=== PATIENT | male | born 1970 | race American Indian/Alaskan Native ===

== ENCOUNTER 2017-07-31 12:59 | Emergency (ER) | payer MEDICAID ==
[2017-07-31 13:08] VITALS: BP 157/85
--- NOTE | 2017-07-31 13:54 | EDM.PDOC ---
ED HPI GENERAL MEDICAL PROBLEM - General Chief Complaint: Neuro Symptoms/Deficits Stated Complaint: BY AMBULANCE Time Seen by Provider: 07/31/17 13:35 Source of Information: Reports: Patient History Limitations: Reports: No Limitations - History of Present Illness INITIAL COMMENTS - FREE TEXT/NARRATIVE: This 46 yo male patient was brought to the ED by [facility] due to a possible seizure. The patient reports he has not slept in the past 2 nights. The patient reports he drank at least 5 redbulls and multiple cups of coffee today to stay awake. The patient reports he was at the bank filling out a deposit slip when he remembers shaking. The patient reports the next thing he remembers was waking up in the back of the ambulance. The patient also reports that he has been smoking. The patient denies any drug or alcohol use. Onset: Today, Sudden Duration: Constant Location: Reports: Generalized Quality: Reports: Other Severity: Severe Improves with: Reports: None Worsens with: Reports: None Associated Symptoms: Reports: No Other Symptoms - Related Data Allergies Allergy/AdvReac Type Severity Reaction Status Date / Time No Known Allergies Allergy Verified 07/31/17 13:04 Home Meds: Home Meds Insulin Aspart [NovoLOG] 1 unit SUBCUT TID 11/11/14 [History] Insulin Glarg,Human.Rec.Analog [Lantus Solostar] 0 units SUBCUT DAILY 11/11/14 [ History] Simvastatin [Simvastatin] 40 mg PO BEDTIME 11/11/14 [History] Lisinopril 40 mg PO DAILY 10/21/15 [History] Past Medical History Cardiovascular History: Reports: High Cholesterol, Hypertension Respiratory History: Reports: COPD Musculoskeletal History: Reports: Back Pain, Chronic, Fracture, Osteoarthritis Neurological History: Reports: Neuropathy, Diabetic Psychiatric History: Reports: Addiction Endocrine/Metabolic History: Reports: Diabetes, Type II, IDDM, Obesity/BMI 30+ - Past Surgical History HEENT Surgical History: Reports: Tonsillectomy Neurological Surgical History: Reports: Spinal Fusion - History Comment History Comment: Noncompliance with medication, insulin, diabetic monitoring/ self care, and diet. Social & Family History - Family History Family Medical History: Noncontributory Cardiac: Reports: CAD, High Cholesterol, Hypertension Respiratory: Reports: COPD GI: Reports: Cholelithiasis Endocrine/Metabolic: Reports: Diabetes, type II, Obesity/MBI 30+ - Tobacco Use Smoking Status *Q: Current Every Day Smoker Years of Tobacco use: 35 Packs/Tins Daily: 1 Used Tobacco, but Quit: No Second Hand Smoke Exposure: Yes - Caffeine Use Caffeine Use: Reports: Energy Drinks, Soda - Alcohol Use Days Per Week of Alcohol Use: 0 - Recreational Drug Use Recreational Drug Use: No - Living Situation & Occupation Living situation: Reports: Occupation: Unemployed ED ROS GENERAL - Review of Systems Review Of Systems: ROS reveals no pertinent complaints other than HPI. ED EXAM, GENERAL - Physical Exam Exam: See Below Exam Limited By: No Limitations General Appearance: Alert, WD/WN, Moderate Distress Eye Exam: Bilateral Eye: EOMI, Normal Inspection, PERRL Ears: Normal External Exam, Normal Canal, Hearing Grossly Normal, Normal TMs Nose: Normal Inspection, Normal Mucosa, No Blood Throat/Mouth: Normal Inspection, Normal Lips, Normal Teeth, Normal Gums, Normal Oropharynx, Normal Voice, No Airway Compromise Head: Atraumatic, Normocephalic Neck: Normal Inspection, Supple, Non-Tender, Full Range of Motion Respiratory/Chest: No Respiratory Distress, Lungs Clear, Normal Breath Sounds, No Accessory Muscle Use, Chest Non-Tender Cardiovascular: Normal Peripheral Pulses, Regular Rate, Rhythm, No Edema, No Gallop, No JVD, No Murmur, No Rub GI/Abdominal: Normal Bowel Sounds, Soft, Non-Tender, No Organomegaly, No Distention, No Abnormal Bruit, No Mass (Male) Exam: Deferred Rectal (Males) Exam: Deferred Back Exam: Normal Inspection, Full Range of Motion, NT Extremities: Normal Inspection, Normal Range of Motion, Non-Tender, Normal Capillary Refill, No Pedal Edema Neurological: Alert, Oriented, CN II-XII Intact, Normal Cognition, Normal Gait, Normal Reflexes, No Motor/Sensory Deficits Psychiatric: Normal Affect, Normal Mood Skin Exam: Warm, Dry, Intact, Normal Color, No Rash Lymphatic: No Adenopathy Course - Vital Signs Last Recorded V/S: Last Vital Signs Temp 36.4 C 07/31/17 13:05 Pulse 115 H 07/31/17 13:05 Resp 18 07/31/17 13:05 BP 157/85 H 07/31/17 13:05 Pulse Ox 99 07/31/17 13:05 - Orders/Labs/Meds Orders: Active Orders 24 hr Category Date Time Status EKG Documentation Completion [RC] URGENT Care 07/31/17 13:12 Active Chest 1V Frontal [CR] Urgent Exams 07/31/17 13:12 Taken Head wo Cont [CT] Urgent Exams 07/31/17 13:12 Taken Labs: Laboratory Tests 07/31/17 07/31/17 07/31/17 Range/Units 13:31 13:31 13:40 WBC (5.0-10.0) 10^3/uL RBC (4.6-6.2) 10^6/uL Hgb (14.0-18.0) g/dL Hct (40.0-54.0) % MCV (80-100) fL MCH (27.0-34.0) pg MCHC (33.0-35.0) g/dL Plt Count (150-450) 10^3/uL Neut % (Auto) (42.2-75.2) % Lymph % (Auto) (20.5-50.1) % [place] % (Auto) (2-8) % Eos % (Auto) (1.0-3.0) % Baso % (Auto) (0.0-1.0) % Sodium (135-145) mmol/L Potassium (3.6-5.0) mmol/L Chloride (101-111) mmol/L Carbon Dioxide (21.0-31.0) mmol/L Anion Gap BUN (7-18) mg/dL Creatinine (0.6-1.3) mg/dL Est Cr Clr Drug Dosing mL/min Estimated GFR (MDRD) BUN/Creatinine Ratio Glucose (74-105) mg/dL Calcium (8.4-10.2) mg/dl Magnesium 1.7 L (1.8-2.5) mg/dL Total Bilirubin (0.2-1.0) mg/dL AST (10-42) IU/L ALT (10-60) IU/L Alkaline Phosphatase (42-121) IU/L Troponin I (0.00-0.02) ng/ml Total Protein (6.7-8.2) g/dl Albumin (3.2-5.5) g/dl Globulin Albumin/Globulin Ratio Urine Color Yellow (YELLOW) Urine Appearance Clear (CLEAR) Urine pH 7.0 (5.0-9.0) Ur Specific [place] 1.015 (1.005-1.030) Urine Protein 100 H (NEGATIVE) Urine Glucose (UA) 100 H (NEGATIVE) Urine Ketones Negative (NEGATIVE) Urine Occult Blood Trace-intact H (NEGATIVE) Urine Nitrite Negative (NEGATIVE) Urine Bilirubin Negative (NEGATIVE) Urine Urobilinogen 0.2 (0.2-1.0) mg/dL Ur Leukocyte Esterase Negative (NEGATIVE) Urine RBC 0-5 /HPF Urine WBC Not seen (0-5/HPF) /HPF Ur Epithelial Cells Few /HPF Urine Bacteria Not seen (0-FEW/HPF) /HPF Urine Other Salicylates < 4 Urine Opiates Screen Positive H (NEGATIVE) Ur Oxycodone Screen Negative (NEGATIVE) Urine Methadone Screen Negative (NEGATIVE) Acetaminophen < 10 Ur Barbiturates Screen Negative (NEGATIVE) U Tricyclic Antidepress Negative (NEGATIVE) Ur Phencyclidine Scrn Negative (NEGATIVE) Ur Amphetamine Screen Negative (NEGATIVE) U Methamphetamines Scrn Negative (NEGATIVE) Urine MDMA Screen Negative (NEGATIVE) U Benzodiazepines Scrn Negative (NEGATIVE) Urine Cocaine Screen Negative (NEGATIVE) U Marijuana (THC) Screen Positive H (NEGATIVE) Ethyl Alcohol < 5 mg/dL 07/31/17 07/31/17 Range/Units 13:40 13:40 WBC 8.7 (5.0-10.0) 10^3/uL RBC 4.65 (4.6-6.2) 10^6/uL Hgb 13.8 L D (14.0-18.0) g/dL Hct 40.6 (40.0-54.0) % MCV 87.3 (80-100) fL MCH 29.7 (27.0-34.0) pg MCHC 34.0 (33.0-35.0) g/dL Plt Count 161 D (150-450) 10^3/uL Neut % (Auto) 67.0 (42.2-75.2) % Lymph % (Auto) 24.6 (20.5-50.1) % [place] % (Auto) 6.2 (2-8) % Eos % (Auto) 1.7 (1.0-3.0) % Baso % (Auto) 0.5 (0.0-1.0) % Sodium 137 (135-145) mmol/L Potassium 3.8 (3.6-5.0) mmol/L Chloride 104 (101-111) mmol/L Carbon Dioxide 22.0 (21.0-31.0) mmol/L Anion Gap 14.8 BUN 6 L (7-18) mg/dL Creatinine 0.8 (0.6-1.3) mg/dL Est Cr Clr Drug Dosing 125.50 mL/min Estimated GFR (MDRD) > 60 BUN/Creatinine Ratio 7.50 Glucose 245 H (74-105) mg/dL Calcium 8.9 (8.4-10.2) mg/dl Magnesium (1.8-2.5) mg/dL Total Bilirubin 0.5 (0.2-1.0) mg/dL AST 23 (10-42) IU/L ALT 30 (10-60) IU/L Alkaline Phosphatase 62 (42-121) IU/L Troponin I < 0.02 (0.00-0.02) ng/ml Total Protein 7.0 (6.7-8.2) g/dl Albumin 3.8 (3.2-5.5) g/dl Globulin 3.2 Albumin/Globulin Ratio 1.19 Urine Color (YELLOW) Urine Appearance (CLEAR) Urine pH (5.0-9.0) Ur Specific [place] (1.005-1.030) Urine Protein (NEGATIVE) Urine Glucose (UA) (NEGATIVE) Urine Ketones (NEGATIVE) Urine Occult Blood (NEGATIVE) Urine Nitrite (NEGATIVE) Urine Bilirubin (NEGATIVE) Urine Urobilinogen (0.2-1.0) mg/dL Ur Leukocyte Esterase (NEGATIVE) Urine RBC /HPF Urine WBC (0-5/HPF) /HPF Ur Epithelial Cells /HPF Urine Bacteria (0-FEW/HPF) /HPF Urine Other Salicylates Urine Opiates Screen (NEGATIVE) Ur Oxycodone Screen (NEGATIVE) Urine Methadone Screen (NEGATIVE) Acetaminophen Ur Barbiturates Screen (NEGATIVE) U Tricyclic Antidepress (NEGATIVE) Ur Phencyclidine Scrn (NEGATIVE) Ur Amphetamine Screen (NEGATIVE) U Methamphetamines Scrn (NEGATIVE) Urine MDMA Screen (NEGATIVE) U Benzodiazepines Scrn (NEGATIVE) Urine Cocaine Screen (NEGATIVE) U Marijuana (THC) Screen (NEGATIVE) Ethyl Alcohol mg/dL Departure - Departure Time of Disposition: 14:28 Disposition: Against Medical Advice 07 Condition: Undetermined Clinical Impression: Use of energy drinks, Caffeine abuse - Discharge Information Forms: ED Department Discharge Care Plan Goals: The patient was advised of the EKG and lab results while in the ED. While waiting for the CT results, the patient left against medical advice. - My Orders Last 24 Hours: My Active Orders 07/31/17 13:12 EKG Documentation Completion [RC] URGENT Chest 1V Frontal [CR] Urgent Head wo Cont [CT] Urgent - Assessment/Plan Last 24 Hours: My Active Orders 07/31/17 13:12 EKG Documentation Completion [RC] URGENT Chest 1V Frontal [CR] Urgent Head wo Cont [CT] Urgent
[2017-07-31 14:08] LABS: CHLORIDE,CL 104 mmol/L (101-111); SODIUM,NA 137 mmol/L (135-145)
[2017-07-31 14:10] LABS: ACETAMINOPHEN < 10
--- NOTE | 2017-08-06 15:03 | EKG ---
07/31/2017 - PAGE, REX AVERY - FINDINGS: This 12-lead EKG shows sinus tachycardia with a ventricular rate of 109. Normal axis and intervals. No acute ST-segment or T-wave changes. [facility] /[id number]
== END 2017-07-31 14:27 | disposition left against medical advice (07) ==
LOC: DL.ED 12:59
DX: F15.10 Other stimulant abuse, uncomplicated (principal); F17.210 Nicotine dependence, cigarettes, uncomplicated; I10 Essential (primary) hypertension; E11.40 Type 2 diabetes mellitus with diabetic neuropathy, unspecified; J44.9 Chronic obstructive pulmonary disease, unspecified; E78.00 Pure hypercholesterolemia, unspecified; Z79.4 Long term (current) use of insulin; Z79.899 Other long term (current) drug therapy
CPT/HCPCS: 36415; 70450; 71010; 80053; 80305; 81001; 83735; 84484; 85025; 93005; 99285; G0480

== ENCOUNTER 2017-08-16 01:39 | Emergency (ER) | payer MEDICAID ==
[2017-08-16] MEDS ORDERED: Insulin Regular, Human 100 Units/ML 3 ML Vial SUBCUT ONE ×2 (02:15→02:18)
[2017-08-16 02:28] LABS: CHLORIDE,CL 96 mmol/L (101-111); SODIUM,NA 133 mmol/L (135-145)
[2017-08-16 02:54] LABS: BASE EXCESS ARTERIAL -1 mmol/L ((-2)-(+3)); BICARBONATE,ARTERIAL 23.2 mmol/L (22-26); O2 DELIVERY DEVICE ROOM AIR; O2 SATURATION ARTERIAL 91 % (95-100); PCO2 ARTERIAL 41 mmHg (35-45); PO2 ARTERIAL 64 mmHg (70-100)
[2017-08-16] MEDS ORDERED: LORazepam 2 MG/ML Syringe ONE ×2 (03:03→03:19)
[2017-08-16] MEDS ORDERED: Phenytoin 1,000 MG in Sodium Chloride 0.9% 100 ML IV ONE (03:25)
--- NOTE | 2017-08-16 03:31 | EDM.PDOC ---
ED HPI GENERAL MEDICAL PROBLEM - General Chief Complaint: Cardiovascular Problem Stated Complaint: IN BY AMBULANCE Time Seen by Provider: 08/16/17 01:45 Source of Information: Reports: Patient History Limitations: Reports: No Limitations - History of Present Illness INITIAL COMMENTS - FREE TEXT/NARRATIVE: ED via [facility], reported to have bee "shaking at work" then seemed confused and couldnt ercall things, Patient is diabetic and admits not taking medication for at least one month. Onset: Today - Related Data Allergies Allergy/AdvReac Type Severity Reaction Status Date / Time No Known Allergies Allergy Verified 08/16/17 02:08 Home Meds: Home Meds Insulin Aspart [NovoLOG] 1 unit SUBCUT TID 11/11/14 [History] Insulin Glarg,Human.Rec.Analog [Lantus Solostar] 0 units SUBCUT DAILY 11/11/14 [ History] Simvastatin [Simvastatin] 40 mg PO BEDTIME 11/11/14 [History] Lisinopril 40 mg PO DAILY 10/21/15 [History] Past Medical History Cardiovascular History: Reports: High Cholesterol, Hypertension Respiratory History: Reports: COPD Musculoskeletal History: Reports: Back Pain, Chronic, Fracture, Osteoarthritis Neurological History: Reports: Neuropathy, Diabetic Psychiatric History: Reports: Addiction Endocrine/Metabolic History: Reports: Diabetes, Type II, IDDM, Obesity/BMI 30+ - Past Surgical History HEENT Surgical History: Reports: Tonsillectomy Neurological Surgical History: Reports: Spinal Fusion - History Comment History Comment: Noncompliance with medication, insulin, diabetic monitoring/ self care, and diet. Social & Family History - Family History Family Medical History: Noncontributory Cardiac: Reports: CAD, High Cholesterol, Hypertension Respiratory: Reports: COPD GI: Reports: Cholelithiasis Endocrine/Metabolic: Reports: Diabetes, type II, Obesity/MBI 30+ - Tobacco Use Smoking Status *Q: Current Every Day Smoker Years of Tobacco use: 30 Packs/Tins Daily: 20 Used Tobacco, but Quit: No Second Hand Smoke Exposure: Yes - Caffeine Use Caffeine Use: Reports: Coffee, Soda, Tea - Alcohol Use Days Per Week of Alcohol Use: 0 - Recreational Drug Use Recreational Drug Use: No - Living Situation & Occupation Living situation: Reports: Occupation: Unemployed ED ROS GENERAL - Review of Systems Review Of Systems: See Below Constitutional: Denies: Fever, Chills HEENT: Reports: No Symptoms Respiratory: Reports: No Symptoms Cardiovascular: Reports: No Symptoms Endocrine: Reports: Other (Diabetic admits not checking sugar or taking insulin for at least a month) : Reports: No Symptoms Musculoskeletal: Reports: No Symptoms Skin: Reports: No Symptoms Neurological: Reports: Confusion ED EXAM, GENERAL - Physical Exam Exam: See Below Exam Limited By: No Limitations General Appearance: Alert, No Apparent Distress Eye Exam: Bilateral Eye: EOMI, PERRL (5 sluggish reaction) Ears: Normal External Exam Nose: Normal Inspection Throat/Mouth: Normal Inspection Head: Atraumatic, Normocephalic Neck: Normal Inspection, Full Range of Motion Respiratory/Chest: No Respiratory Distress, Lungs Clear, Normal Breath Sounds Cardiovascular: Normal Peripheral Pulses, Regular Rate, Rhythm GI/Abdominal: Normal Bowel Sounds, Soft Back Exam: Normal Inspection Extremities: Normal Inspection Neurological: Alert (confused time date recent events), Normal Reflexes, No Motor/Sensory Deficits Psychiatric: Normal Affect, Normal Mood Skin Exam: Warm, Dry, Intact, Normal Color Course - Vital Signs Last Recorded V/S: Last Vital Signs Temp 98.3 F 08/16/17 03:45 Pulse 123 H 08/16/17 03:45 Resp 20 08/16/17 03:45 BP 131/86 08/16/17 03:45 Pulse Ox 98 08/16/17 03:45 - Orders/Labs/Meds Orders: Active Orders 24 hr Category Date Time Status Glucose [Blood Glucose Check, Bedside] [RC] ONETIME Care 08/16/17 04:09 Active Labs: Laboratory Tests 08/16/17 08/16/17 08/16/17 Range/Units 02:00 02:00 02:00 WBC 12.5 H (5.0-10.0) 10^3/uL RBC 5.15 (4.6-6.2) 10^6/uL Hgb 15.2 (14.0-18.0) g/dL Hct 44.0 (40.0-54.0) % MCV 85.4 (80-100) fL MCH 29.5 (27.0-34.0) pg MCHC 34.5 (33.0-35.0) g/dL Plt Count 229 (150-450) 10^3/uL Neut % (Auto) 87.3 H (42.2-75.2) % Lymph % (Auto) 8.6 L (20.5-50.1) % [place] % (Auto) 3.5 (2-8) % Eos % (Auto) 0.2 L (1.0-3.0) % Baso % (Auto) 0.4 (0.0-1.0) % ABG pH (7.35-7.45) ABG pCO2 (35-45) mmHg ABG pO2 (70-100) mmHg ABG HCO3 (22-26) mmol/L ABG O2 Saturation (95-100) % ABG Base Excess ((-2)-(+3)) mmol/L O2 Delivery Device Sodium 133 L (135-145) mmol/L Potassium 3.9 (3.6-5.0) mmol/L Chloride 96 L (101-111) mmol/L Carbon Dioxide 23.0 (21.0-31.0) mmol/L Anion Gap 17.9 BUN 8 (7-18) mg/dL Creatinine 0.9 (0.6-1.3) mg/dL Est Cr Clr Drug Dosing 111.56 mL/min Estimated GFR (MDRD) > 60 BUN/Creatinine Ratio 8.88 Glucose 445 H* (74-105) mg/dL POC Glucose (70-105) mg/dl Lactic Acid 4.7 H (0.5-2.2) mmol/L Calcium 9.5 (8.4-10.2) mg/dl Total Bilirubin 0.5 (0.2-1.0) mg/dL AST 26 (10-42) IU/L ALT 26 (10-60) IU/L Alkaline Phosphatase 92 (42-121) IU/L Total Protein 7.8 (6.7-8.2) g/dl Albumin 4.3 (3.2-5.5) g/dl Globulin 3.5 Albumin/Globulin Ratio 1.23 Amylase 67 (28-100) U/L Lipase 25 (22-51) U/L Urine Color (YELLOW) Urine Appearance (CLEAR) Urine pH (5.0-9.0) Ur Specific [place] (1.005-1.030) Urine Protein (NEGATIVE) Urine Glucose (UA) (NEGATIVE) Urine Ketones (NEGATIVE) Urine Occult Blood (NEGATIVE) Urine Nitrite (NEGATIVE) Urine Bilirubin (NEGATIVE) Urine Urobilinogen (0.2-1.0) mg/dL Ur Leukocyte Esterase (NEGATIVE) Urine RBC /HPF Urine WBC (0-5/HPF) /HPF Ur Epithelial Cells /HPF Urine Bacteria (0-FEW/HPF) /HPF Urine Opiates Screen (NEGATIVE) Ur Oxycodone Screen (NEGATIVE) Urine Methadone Screen (NEGATIVE) Ur Barbiturates Screen (NEGATIVE) U Tricyclic Antidepress (NEGATIVE) Ur Phencyclidine Scrn (NEGATIVE) Ur Amphetamine Screen (NEGATIVE) U Methamphetamines Scrn (NEGATIVE) Urine MDMA Screen (NEGATIVE) U Benzodiazepines Scrn (NEGATIVE) Urine Cocaine Screen (NEGATIVE) U Marijuana (THC) Screen (NEGATIVE) Ketones Negative 08/16/17 08/16/17 08/16/17 Range/Units 02:05 02:40 03:10 WBC (5.0-10.0) 10^3/uL RBC (4.6-6.2) 10^6/uL Hgb (14.0-18.0) g/dL Hct (40.0-54.0) % MCV (80-100) fL MCH (27.0-34.0) pg MCHC (33.0-35.0) g/dL Plt Count (150-450) 10^3/uL Neut % (Auto) (42.2-75.2) % Lymph % (Auto) (20.5-50.1) % [place] % (Auto) (2-8) % Eos % (Auto) (1.0-3.0) % Baso % (Auto) (0.0-1.0) % ABG pH 7.37 (7.35-7.45) ABG pCO2 41 (35-45) mmHg ABG pO2 64 L (70-100) mmHg ABG HCO3 23.2 (22-26) mmol/L ABG O2 Saturation 91 L (95-100) % ABG Base Excess -1 ((-2)-(+3)) mmol/L O2 Delivery Device Room air Sodium (135-145) mmol/L Potassium (3.6-5.0) mmol/L Chloride (101-111) mmol/L Carbon Dioxide (21.0-31.0) mmol/L Anion Gap BUN (7-18) mg/dL Creatinine (0.6-1.3) mg/dL Est Cr Clr Drug Dosing mL/min Estimated GFR (MDRD) BUN/Creatinine Ratio Glucose (74-105) mg/dL POC Glucose 364 H 386 H (70-105) mg/dl Lactic Acid (0.5-2.2) mmol/L Calcium (8.4-10.2) mg/dl Total Bilirubin (0.2-1.0) mg/dL AST (10-42) IU/L ALT (10-60) IU/L Alkaline Phosphatase (42-121) IU/L Total Protein (6.7-8.2) g/dl Albumin (3.2-5.5) g/dl Globulin Albumin/Globulin Ratio Amylase (28-100) U/L Lipase (22-51) U/L Urine Color (YELLOW) Urine Appearance (CLEAR) Urine pH (5.0-9.0) Ur Specific [place] (1.005-1.030) Urine Protein (NEGATIVE) Urine Glucose (UA) (NEGATIVE) Urine Ketones (NEGATIVE) Urine Occult Blood (NEGATIVE) Urine Nitrite (NEGATIVE) Urine Bilirubin (NEGATIVE) Urine Urobilinogen (0.2-1.0) mg/dL Ur Leukocyte Esterase (NEGATIVE) Urine RBC /HPF Urine WBC (0-5/HPF) /HPF Ur Epithelial Cells /HPF Urine Bacteria (0-FEW/HPF) /HPF Urine Opiates Screen (NEGATIVE) Ur Oxycodone Screen (NEGATIVE) Urine Methadone Screen (NEGATIVE) Ur Barbiturates Screen (NEGATIVE) U Tricyclic Antidepress (NEGATIVE) Ur Phencyclidine Scrn (NEGATIVE) Ur Amphetamine Screen (NEGATIVE) U Methamphetamines Scrn (NEGATIVE) Urine MDMA Screen (NEGATIVE) U Benzodiazepines Scrn (NEGATIVE) Urine Cocaine Screen (NEGATIVE) U Marijuana (THC) Screen (NEGATIVE) Ketones 08/16/17 08/16/17 08/16/17 Range/Units 03:22 03:22 04:20 WBC (5.0-10.0) 10^3/uL RBC (4.6-6.2) 10^6/uL Hgb (14.0-18.0) g/dL Hct (40.0-54.0) % MCV (80-100) fL MCH (27.0-34.0) pg MCHC (33.0-35.0) g/dL Plt Count (150-450) 10^3/uL Neut % (Auto) (42.2-75.2) % Lymph % (Auto) (20.5-50.1) % [place] % (Auto) (2-8) % Eos % (Auto) (1.0-3.0) % Baso % (Auto) (0.0-1.0) % ABG pH (7.35-7.45) ABG pCO2 (35-45) mmHg ABG pO2 (70-100) mmHg ABG HCO3 (22-26) mmol/L ABG O2 Saturation (95-100) % ABG Base Excess ((-2)-(+3)) mmol/L O2 Delivery Device Sodium (135-145) mmol/L Potassium (3.6-5.0) mmol/L Chloride (101-111) mmol/L Carbon Dioxide (21.0-31.0) mmol/L Anion Gap BUN (7-18) mg/dL Creatinine (0.6-1.3) mg/dL Est Cr Clr Drug Dosing mL/min Estimated GFR (MDRD) BUN/Creatinine Ratio Glucose (74-105) mg/dL POC Glucose 342 H (70-105) mg/dl Lactic Acid (0.5-2.2) mmol/L Calcium (8.4-10.2) mg/dl Total Bilirubin (0.2-1.0) mg/dL AST (10-42) IU/L ALT (10-60) IU/L Alkaline Phosphatase (42-121) IU/L Total Protein (6.7-8.2) g/dl Albumin (3.2-5.5) g/dl Globulin Albumin/Globulin Ratio Amylase (28-100) U/L Lipase (22-51) U/L Urine Color Yellow (YELLOW) Urine Appearance Clear (CLEAR) Urine pH 6.0 (5.0-9.0) Ur Specific [place] 1.010 (1.005-1.030) Urine Protein 30 H (NEGATIVE) Urine Glucose (UA) 500 H (NEGATIVE) Urine Ketones 15 H (NEGATIVE) Urine Occult Blood Trace-intact H (NEGATIVE) Urine Nitrite Negative (NEGATIVE) Urine Bilirubin Negative (NEGATIVE) Urine Urobilinogen 0.2 (0.2-1.0) mg/dL Ur Leukocyte Esterase Negative (NEGATIVE) Urine RBC 0-5 /HPF Urine WBC 0-5 (0-5/HPF) /HPF Ur Epithelial Cells Rare /HPF Urine Bacteria Occasional (0-FEW/HPF) /HPF Urine Opiates Screen Negative (NEGATIVE) Ur Oxycodone Screen Negative (NEGATIVE) Urine Methadone Screen Negative (NEGATIVE) Ur Barbiturates Screen Negative (NEGATIVE) U Tricyclic Antidepress Negative (NEGATIVE) Ur Phencyclidine Scrn Negative (NEGATIVE) Ur Amphetamine Screen Negative (NEGATIVE) U Methamphetamines Scrn Negative (NEGATIVE) Urine MDMA Screen Negative (NEGATIVE) U Benzodiazepines Scrn Negative (NEGATIVE) Urine Cocaine Screen Negative (NEGATIVE) U Marijuana (THC) Screen Positive H (NEGATIVE) Ketones Meds: Medications Discontinued Medications Generic Name Dose Route Start Last Admin Trade Name Freq PRN Reason Stop Dose Admin Phenytoin Sodium 1,000 mg/ 120 mls @ 240 mls/hr 08/16/17 03:25 08/16/17 03:49 Sodium Chloride IV 08/16/17 03:26 240 mls/hr ONETIME ONE Administration Sodium Chloride 1,000 mls @ 500 mls/hr 08/16/17 04:28 08/16/17 04:20 Normal Saline IV 08/16/17 06:27 500 mls/hr .BOLUS ONE Administration Insulin Human Regular 15 unit 08/16/17 02:15 08/16/17 02:49 Humulin R SUBCUT 08/16/17 02:16 Not Given ONETIME ONE Protocol Insulin Human Regular 10 unit 08/16/17 02:18 08/16/17 02:25 Humulin R SUBCUT 08/16/17 02:19 10 units ONETIME ONE Administration Protocol Lorazepam Confirm 08/16/17 03:03 08/16/17 04:15 Ativan Administered 08/16/17 03:04 2 mg Dose Administration 2 mg .ROUTE .STK-MED ONE Lorazepam Confirm 08/16/17 03:19 08/16/17 04:15 Ativan Administered 08/16/17 03:20 2 mg Dose Administration 2 mg .ROUTE .STK-MED ONE Lorazepam 2 mg 08/16/17 03:51 08/16/17 04:16 Ativan IVPUSH 08/16/17 03:52 Not Given ONETIME ONE Lorazepam 1 mg 08/16/17 03:51 08/16/17 04:16 Ativan IVPUSH 08/16/17 03:52 Not Given ONETIME ONE - Radiology Interpretation Free Text/Narrative:: CT head, no acute change - Re-Assessments/Exams Free Text/Narrative Re-Assessment/Exam: awaiting lab results, patient up to void, tonic clonic seizure lasting approximately 90 seconds with postictal state 3mg ativan to cease siezure activity. TC consult Dr. Brandon Longoria, agree to admit for further eval DKA and seizure. Tx via [facility] stable condition, awake talking appropriately upon transfer. Departure - Departure Time of Disposition: 04:35 Disposition: DC/Tfer to Acute Hospital 02 Reason for Transfer *Q: Other Condition: Undetermined Clinical Impression: Seizure Diabetes Qualifiers: Diabetes mellitus type: other specified (including ABHIJIT) Diabetes mellitus complication status: without complication Diabetes mellitus correction insulin use: unspecified correction insulin use status Qualified Code(s): E13.9 - Other specified diabetes mellitus without complications DKA (diabetic ketoacidoses) Qualifiers: Diabetes mellitus type: type 2 Diabetes mellitus complication detail: without coma Qualified Code(s): E11.10 - Type 2 diabetes mellitus with ketoacidosis without coma Forms: ED Department Discharge - My Orders Last 24 Hours: My Active Orders 08/16/17 04:09 Glucose [Blood Glucose Check, Bedside] [] ONETIME - Assessment/Plan Last 24 Hours: My Active Orders 08/16/17 04:09 Glucose [Blood Glucose Check, Bedside] [] ONETIME
[2017-08-16 03:44] VITALS: BP 131/86
[2017-08-16] MEDS ORDERED: LORazepam 2 MG/ML Syringe IVPUSH ONE ×2 (03:51)
[2017-08-16] MEDS ORDERED: Sodium Chloride 0.9% 1,000 ML IV ONE (04:28)
--- NOTE | 2017-08-19 13:34 | EKG ---
08/16/2017 - PAGE, REX AVERY - A 12-lead EKG shows normal sinus rhythm with sinus tachycardia. No significant ST elevation or ST depression noted on this 12-lead EKG. Nonspecific ST-T wave changes noted on lead V2 and lead II. [facility] /[id number]
== END 2017-08-16 04:37 ==
LOC: DL.ED 01:39
DX: G40.409 Other generalized epilepsy and epileptic syndromes, not intractable, without status epilepticus (principal); E11.10 Type 2 diabetes mellitus with ketoacidosis without coma; E11.40 Type 2 diabetes mellitus with diabetic neuropathy, unspecified; I10 Essential (primary) hypertension; E78.00 Pure hypercholesterolemia, unspecified; Z79.4 Long term (current) use of insulin; Z79.899 Other long term (current) drug therapy
CPT/HCPCS: 36415; 36600; 70450; 80053; 80305; 81001; 82009; 82150; 82803; 82962; 83605; 83690; 85025; 93005; 96365; 96372; 96375; 99285; J1165; J1815; J2060; J7030; J7050

== ENCOUNTER 2017-08-30 15:25 | Emergency (ER) | payer MEDICAID ==
[2017-08-30] MEDS ORDERED: Acetaminophen/HYDROcodone 325-10 MG Tab PO ONE (15:26)
[2017-08-30] MEDS ORDERED: Clindamycin HCl 150 MG Cap PO ONE (15:26)
[2017-08-30] MEDS ORDERED: Ciprofloxacin 500 MG Tab PO ONE (15:26)
[2017-08-30 15:41] VITALS: BP 160/95
--- NOTE | 2017-08-30 15:42 | EDM.PDOC ---
ED HPI GENERAL MEDICAL PROBLEM - General Chief Complaint: Lower Extremity Injury/Pain Stated Complaint: ULCER ON FOOT AND DRAINAGE [id number] Time Seen by Provider: 08/30/17 15:42 Source of Information: Reports: Patient, Old Records, RN, RN Notes Reviewed History Limitations: Reports: No Limitations - History of Present Illness INITIAL COMMENTS - FREE TEXT/NARRATIVE: Arrives from home by POV with c/o a draining ulcer at the left heel with a painful red streak going from the ulcer up to the knee. Pt states he first noticed the left heel was red and had a blister about 3 days ago. Pt works and is on his feet for 15 hours every day. Yesterday the area began to drain pus and fluid. Denies fever or chills. Pt states that he is an insulin dependent diabetic and doesn't take very good care of his health. He smokes a pack of cigarettes a day also. Onset: Gradual Duration: Day(s): (3-5), Constant, Getting Worse Location: Reports: Lower Extremity, Left Quality: Reports: Ache Severity: Moderate Improves with: Reports: None Worsens with: Reports: None Associated Symptoms: Reports: No Other Symptoms Left Feet Pain Score (Numeric/FACES): 10 - Related Data Allergies Allergy/AdvReac Type Severity Reaction Status Date / Time codeine Allergy Cannot Verified 08/30/17 15:41 Remember shellfish derived Allergy Cannot Verified 08/30/17 15:41 Remember Home Meds: Home Meds Insulin Aspart [NovoLOG] 40 unit SUBCUT DAILY 11/11/14 [History] Insulin Glarg,Human.Rec.Analog [Lantus Solostar] 0 units SUBCUT DAILY 11/11/14 [ History] Simvastatin [Simvastatin] 40 mg PO BEDTIME 11/11/14 [History] Lisinopril 40 mg PO DAILY 10/21/15 [History] Past Medical History Cardiovascular History: Reports: High Cholesterol, Hypertension Respiratory History: Reports: COPD Musculoskeletal History: Reports: Back Pain, Chronic, Fracture, Osteoarthritis Neurological History: Reports: Neuropathy, Diabetic Psychiatric History: Reports: Addiction Endocrine/Metabolic History: Reports: Diabetes, Type II, IDDM, Obesity/BMI 30+ - Past Surgical History HEENT Surgical History: Reports: Tonsillectomy Neurological Surgical History: Reports: Spinal Fusion - History Comment History Comment: Noncompliance with medication, insulin, diabetic monitoring/ self care, and diet. Social & Family History - Family History Family Medical History: Noncontributory Cardiac: Reports: CAD, High Cholesterol, Hypertension Respiratory: Reports: COPD GI: Reports: Cholelithiasis Endocrine/Metabolic: Reports: Diabetes, type II, Obesity/MBI 30+ - Tobacco Use Smoking Status *Q: Current Every Day Smoker Tobacco Use Within Last Twelve Months: Cigarettes Years of Tobacco use: 30 Packs/Tins Daily: 20 Used Tobacco, but Quit: No Second Hand Smoke Exposure: Yes - Caffeine Use Caffeine Use: Reports: Coffee, Soda, Tea - Alcohol Use Days Per Week of Alcohol Use: 0 - Recreational Drug Use Recreational Drug Use: No - Living Situation & Occupation Living situation: Reports: , with Family Occupation: Employed Review of Systems - Review of Systems Review Of Systems: ROS reveals no pertinent complaints other than HPI. ED EXAM, GENERAL - Physical Exam Exam: See Below Exam Limited By: No Limitations General Appearance: Alert, WD/WN, No Apparent Distress Head: Atraumatic, Normocephalic Respiratory/Chest: No Respiratory Distress, Lungs Clear Cardiovascular: Regular Rate, Rhythm Extremities: Normal Range of Motion, No Pedal Edema Neurological: Alert, Oriented, Normal Cognition, No Motor/Sensory Deficits Psychiatric: Normal Affect, Normal Mood Skin Exam: Decubitus (left lateral heel 3.5cm diameter, unstagable, small amt. of purulent drainage, peripheral erythema w/streaks of erythema running up the ant/lat. lower leg to the knee) Course - Vital Signs Last Recorded V/S: Last Vital Signs Temp 36.6 C 08/30/17 15:36 Pulse 100 08/30/17 15:36 Resp 20 08/30/17 15:36 BP 160/95 H 08/30/17 15:36 Pulse Ox 100 08/30/17 15:36 - Orders/Labs/Meds Orders: Active Orders 24 hr Category Date Time Status Blood Glucose Check, Bedside [RC] ONETIME Care 08/30/17 15:47 Active Peripheral IV Care [RC] . DIRECTED Care 08/30/17 15:59 Active CULTURE BLOOD [BC] Stat Lab 08/30/17 16:09 Received CULTURE BLOOD [BC] Stat Lab 08/30/17 16:50 Received CULTURE WOUND [RM] Stat Lab 08/30/17 16:04 Received Sodium Chloride 0.9% [Saline Flush] Med 08/30/17 15:59 Active 10 ml FLUSH ASDIRECTED PRN Blood Culture x2 Reflex Set [OM.PC] Stat Oth 08/30/17 15:59 Ordered Peripheral IV Insertion Adult [OM.PC] Stat Oth 08/30/17 15:59 Ordered Medication Orders Sodium Chloride (Saline Flush) 10 ml FLUSH ASDIRECTED PRN PRN Reason: Keep Vein Open Labs: Laboratory Tests 08/30/17 08/30/17 08/30/17 Range/Units 15:49 16:09 16:09 WBC 13.2 H (5.0-10.0) 10^3/uL RBC 5.19 (4.6-6.2) 10^6/uL Hgb 15.2 (14.0-18.0) g/dL Hct 45.3 (40.0-54.0) % MCV 87.3 (80-100) fL MCH 29.3 (27.0-34.0) pg MCHC 33.6 (33.0-35.0) g/dL Plt Count 218 (150-450) 10^3/uL Neut % (Auto) 71.2 (42.2-75.2) % Lymph % (Auto) 20.0 L (20.5-50.1) % Duchesne % (Auto) 6.4 (2-8) % Eos % (Auto) 2.0 (1.0-3.0) % Baso % (Auto) 0.4 (0.0-1.0) % Sodium 134 L (135-145) mmol/L Potassium 4.0 (3.6-5.0) mmol/L Chloride 100 L (101-111) mmol/L Carbon Dioxide 29.0 (21.0-31.0) mmol/L Anion Gap 9.0 BUN 9 (7-18) mg/dL Creatinine 0.7 (0.6-1.3) mg/dL Est Cr Clr Drug Dosing 139.05 mL/min Estimated GFR (MDRD) > 60 BUN/Creatinine Ratio 12.85 Glucose 281 H (74-105) mg/dL POC Glucose 251 H (70-105) mg/dl Lactic Acid (0.5-2.2) mmol/L Calcium 9.2 (8.4-10.2) mg/dl Total Bilirubin 0.4 (0.2-1.0) mg/dL AST 16 (10-42) IU/L ALT 24 (10-60) IU/L Alkaline Phosphatase 78 (42-121) IU/L C-Reactive Protein (0.0-1.3) mg/dL Total Protein 7.3 (6.7-8.2) g/dl Albumin 3.9 (3.2-5.5) g/dl Globulin 3.4 Albumin/Globulin Ratio 1.15 08/30/17 08/30/17 Range/Units 16:09 16:09 WBC (5.0-10.0) 10^3/uL RBC (4.6-6.2) 10^6/uL Hgb (14.0-18.0) g/dL Hct (40.0-54.0) % MCV (80-100) fL MCH (27.0-34.0) pg MCHC (33.0-35.0) g/dL Plt Count (150-450) 10^3/uL Neut % (Auto) (42.2-75.2) % Lymph % (Auto) (20.5-50.1) % Duchesne % (Auto) (2-8) % Eos % (Auto) (1.0-3.0) % Baso % (Auto) (0.0-1.0) % Sodium (135-145) mmol/L Potassium (3.6-5.0) mmol/L Chloride (101-111) mmol/L Carbon Dioxide (21.0-31.0) mmol/L Anion Gap BUN (7-18) mg/dL Creatinine (0.6-1.3) mg/dL Est Cr Clr Drug Dosing mL/min Estimated GFR (MDRD) BUN/Creatinine Ratio Glucose (74-105) mg/dL POC Glucose (70-105) mg/dl Lactic Acid 1.4 (0.5-2.2) mmol/L Calcium (8.4-10.2) mg/dl Total Bilirubin (0.2-1.0) mg/dL AST (10-42) IU/L ALT (10-60) IU/L Alkaline Phosphatase (42-121) IU/L C-Reactive Protein 1.1 (0.0-1.3) mg/dL Total Protein (6.7-8.2) g/dl Albumin (3.2-5.5) g/dl Globulin Albumin/Globulin Ratio Meds: Medications Generic Name Dose Route Start Last Admin Trade Name Alex PRN Reason Stop Dose Admin Sodium Chloride 10 ml 08/30/17 15:59 Saline Flush FLUSH ASDIRECTED PRN Keep Vein Open Discontinued Medications Generic Name Dose Route Start Last Admin Trade Name Alex PRN Reason Stop Dose Admin Diphenhydramine HCl 25 mg 08/30/17 16:02 08/30/17 17:00 Benadryl IVPUSH 08/30/17 16:03 25 mg ONETIME ONE Administration Hydromorphone HCl 1 mg 08/30/17 16:02 08/30/17 16:17 Dilaudid IVPUSH 08/30/17 16:03 1 mg ONETIME ONE Administration Piperacillin Sod/Tazobactam 100 mls @ 200 mls/hr 08/30/17 16:03 08/30/17 16: 17 Sod 3.375 gm/ Sodium Chloride IV 08/30/17 16:32 200 mls/hr ONETIME ONE Administration Vancomycin HCl 1 gm/ Sodium 250 mls @ 167 mls/hr 08/30/17 16:02 08/30/17 17: 01 Chloride IV 08/30/17 17:31 167 mls/hr ONETIME ONE Administration Departure - Departure Time of Disposition: 17:57 Disposition: Home, Self-Care 01 Condition: Fair Clinical Impression: Type 2 diabetes mellitus with pressure ulcer of heel Infected pressure ulcer Qualifiers: Pressure ulcer stage: unstageable Qualified Code(s): L89.95 - Pressure ulcer of unspecified site, unstageable; L08.9 - Local infection of the skin and subcutaneous tissue, unspecified; L08.9 - Local infection of the skin and subcutaneous tissue, unspecified - Discharge Information Instructions: Diabetes and Foot Care, Cellulitis, Adult, [id number] Forms: ED Department Discharge Additional Instructions: Rx: Clindamycin 300mg Rx: Cipro 500mg Rx: Hydrocodone APAP 10mg/325mg *Do not drive while under the influence of this medication. No weight bearing on left heel, use crutches. Follow up in clinic in 2 to 3 days for recheck and referral to podiatry. Quit smoking. Monitor and control your diabetes. - My Orders Last 24 Hours: My Active Orders 08/30/17 15:47 Blood Glucose Check, Bedside [RC] ONETIME 08/30/17 15:59 Peripheral IV Care [RC] . DIRECTED Sodium Chloride 0.9% [Saline Flush] 10 ml FLUSH ASDIRECTED PRN Blood Culture x2 Reflex Set [OM.PC] Stat Peripheral IV Insertion Adult [OM.PC] Stat 08/30/17 16:04 CULTURE WOUND [RM] Stat 08/30/17 16:09 CULTURE BLOOD [BC] Stat 08/30/17 16:50 CULTURE BLOOD [BC] Stat - Assessment/Plan Last 24 Hours: My Active Orders 08/30/17 15:47 Blood Glucose Check, Bedside [RC] ONETIME 08/30/17 15:59 Peripheral IV Care [RC] . DIRECTED Sodium Chloride 0.9% [Saline Flush] 10 ml FLUSH ASDIRECTED PRN Blood Culture x2 Reflex Set [OM.PC] Stat Peripheral IV Insertion Adult [OM.PC] Stat 08/30/17 16:04 CULTURE WOUND [RM] Stat 08/30/17 16:09 CULTURE BLOOD [BC] Stat 08/30/17 16:50 CULTURE BLOOD [BC] Stat
[2017-08-30] MEDS ORDERED: Sodium Chloride 0.9% 10 ML Syringe FLUSH PRN (15:59)
[2017-08-30] MEDS ORDERED: HYDROmorphone 1 MG/ML Syringe IVPUSH ONE (16:02)
[2017-08-30] MEDS ORDERED: diphenhydrAMINE 50 MG/ML SDV IVPUSH ONE (16:02)
[2017-08-30] MEDS ORDERED: Piperacillin/Tazobactam 3.375 GM in Sodium Chloride 0.9% 100 ML IV ONE (16:03)
[2017-08-30 16:36] LABS: CHLORIDE,CL 100 mmol/L (101-111); SODIUM,NA 134 mmol/L (135-145)
[2017-08-30] MEDS ORDERED: Ciprofloxacin 500 MG Tab ONE (18:29)
[2017-08-30] MEDS ORDERED: Clindamycin HCl 150 MG Cap ONE (18:31)
[2017-08-30] MEDS ORDERED: Acetaminophen/HYDROcodone 325-10 MG Tab ONE (18:33)
== END 2017-08-30 18:40 | disposition home or self-care (01) ==
LOC: DL.ED 15:25
DX: L89.620 Pressure ulcer of left heel, unstageable (principal); E11.621 Type 2 diabetes mellitus with foot ulcer; E78.00 Pure hypercholesterolemia, unspecified; I10 Essential (primary) hypertension; F17.210 Nicotine dependence, cigarettes, uncomplicated; Z88.5 Allergy status to narcotic agent; Z91.013 Allergy to seafood; Z79.4 Long term (current) use of insulin; Z79.899 Other long term (current) drug therapy
CPT/HCPCS: 36415; 73610; 80053; 82962; 83605; 85025; 86140; 87040; 87070; 96365; 96366; 96367; 96375; 99284; J1170; J1200; J2543; J3370; J7050; 87077; 87186; A9270-GY

== ENCOUNTER 2017-09-21 15:06 | Emergency (ER) | payer MEDICAID, OTHER ==
[2017-09-21 15:24] VITALS: BP 154/109
[2017-09-21] MEDS ORDERED: Ketorolac 30 MG/ML SDV IVPUSH ONE (16:05)
--- NOTE | 2017-09-21 16:11 | EDM.PDOC ---
ED HPI GENERAL MEDICAL PROBLEM - General Chief Complaint: Neck Problem Stated Complaint: NECK/LEFT SHOULDER Time Seen by Provider: 09/21/17 15:58 Source of Information: Reports: Patient History Limitations: Reports: No Limitations - History of Present Illness INITIAL COMMENTS - FREE TEXT/NARRATIVE: This 46 yo male patient reports to the ED with a lengthy history of neck pain with neuropathy to his upper extremities. The patient has been seen by Pedro Sarmiento for these symptoms and is scheduled to have an MRI by the end of the week. The patient reports he took ibuprofen this morning with no relief. The patient is also on Gabapentin for neuropathy. Onset: Gradual Duration: Week(s):, Constant, Getting Worse Location: Reports: Neck, Upper Extremity, Left, Upper Extremity, Right Quality: Reports: Ache, Sharp, Stabbing Severity: Severe Improves with: Reports: None Worsens with: Reports: None Context: Reports: Other Treatments [employer]: Reports: NSAIDS Neck Pain Score (Numeric/FACES): 8 - Related Data Allergies Allergy/AdvReac Type Severity Reaction Status Date / Time codeine Allergy Cannot Verified 09/21/17 15:23 Remember shellfish derived Allergy Cannot Verified 09/21/17 15:23 Remember Home Meds: Home Meds Insulin Aspart [NovoLOG] 40 unit SUBCUT DAILY 11/11/14 [History] Insulin Glarg,Human.Rec.Analog [Lantus Solostar] 0 units SUBCUT DAILY 11/11/14 [ History] Simvastatin [Simvastatin] 40 mg PO BEDTIME 11/11/14 [History] Lisinopril 40 mg PO DAILY 10/21/15 [History] Gabapentin [Neurontin] 600 mg PO TID 09/21/17 [History] Pioglitazone [Actos] 30 mg PO DAILY 09/21/17 [History] Pregabalin [Lyrica] 50 mg PO DAILY 09/21/17 [History] metFORMIN [Glucophage] 100 mg PO BID 09/21/17 [History] Past Medical History Cardiovascular History: Reports: High Cholesterol, Hypertension Respiratory History: Reports: COPD Musculoskeletal History: Reports: Back Pain, Chronic, Fracture, Osteoarthritis Neurological History: Reports: Neuropathy, Diabetic Psychiatric History: Reports: Addiction Endocrine/Metabolic History: Reports: Diabetes, Type II, IDDM, Obesity/BMI 30+ - Past Surgical History HEENT Surgical History: Reports: Tonsillectomy Neurological Surgical History: Reports: Spinal Fusion - History Comment History Comment: Noncompliance with medication, insulin, diabetic monitoring/ self care, and diet. Social & Family History - Family History Family Medical History: Noncontributory Cardiac: Reports: CAD, High Cholesterol, Hypertension Respiratory: Reports: COPD GI: Reports: Cholelithiasis Endocrine/Metabolic: Reports: Diabetes, type II, Obesity/MBI 30+ - Tobacco Use Smoking Status *Q: Current Every Day Smoker Years of Tobacco use: 20 Packs/Tins Daily: 1 Used Tobacco, but Quit: No Second Hand Smoke Exposure: Yes - Caffeine Use Caffeine Use: Reports: Coffee, Soda - Alcohol Use Days Per Week of Alcohol Use: 0 - Recreational Drug Use Recreational Drug Use: No Other Recreational Drug Type: pt denies - Living Situation & Occupation Living situation: Reports: , with Family Occupation: Employed ED ROS GENERAL - Review of Systems Review Of Systems: ROS reveals no pertinent complaints other than HPI. ED EXAM, UPPER BACK/NECK PAIN - Physical Exam Exam: See Below Exam Limited By: No Limitations General Appearance: Alert, WD/WN, Severe Distress, Obese Eye Exam: Bilateral Eye: EOMI, Normal Inspection, PERRL Ears Exam: Normal External Exam, Normal Canal, Hearing Grossly Normal, Normal TMs Nose Exam: Normal Inspection, Normal Mucousa, No Blood Throat/Mouth Exam: Normal Inspection, Normal Lips, Normal Teeth, Normal Gums, Normal Oropharynx, Normal Voice, No Airway Compromise Head Exam: Atraumatic, Normocephalic Neck Exam: Limited Range of Motion, Tender Lateral, Tender Midline Cardiovascular/Respiratory: Regular Rate, Rhythm, No M/R/G, Normal Peripheral Pulses, No JVD, Normal Breath Sounds, No Respiratory Distress GI/Abdominal: Normal Bowel Sounds, Soft, Non-Tender, No Organomegaly, No Distention, No Abnormal Bruit, No Mass (Male) Exam: Deferred Rectal (Males) Exam: Deferred Back Exam: Normal Inspection Extremities: Normal Inspection, Normal Range of Motion, Non-Tender, No Pedal Edema, Normal Capillary Refill Neurologic: nurse practitioner home assessments II-XII nml As Tested, No Motor/Sensory Deficits, Alert, Normal Mood/Affect, Oriented x 3 Psychiatric: Anxious, Flat Affect Skin Exam: Normal Color, Warm/Dry Lymphatic: No Adenopathy Course - Vital Signs Last Recorded V/S: Last Vital Signs Temp 36.1 C 09/21/17 15:23 Pulse 118 H 09/21/17 15:23 Resp 20 09/21/17 15:23 BP 154/109 H 09/21/17 15:23 Pulse Ox 100 09/21/17 15:23 - Orders/Labs/Meds Orders: Active Orders 24 hr Category Date Time Status Acetaminophen/HYDROcodone [[place] 325-10 MG] Med 09/21/17 16:30 Once 1 tab PO ONETIME ONE Orphenadrine [Norflex] Med 09/21/17 16:15 Active 60 mg IM Q12H Medication Orders Orphenadrine Citrate (Norflex) 60 mg IM Q12H JAMARCUS Last Admin: 09/21/17 16:19 Dose: 60 mg Meds: Medications Generic Name Dose Route Start Last Admin Trade Name Freq PRN Reason Stop Dose Admin Orphenadrine Citrate 60 mg 09/21/17 16:15 09/21/17 16:19 Norflex IM 60 mg Q12H JAMARCUS Administration Discontinued Medications Generic Name Dose Route Start Last Admin Trade Name Freq PRN Reason Stop Dose Admin Ketorolac Tromethamine 60 mg 09/21/17 16:05 09/21/17 16:19 Toradol IVPUSH 09/21/17 16:06 60 mg ONETIME ONE Administration Departure - Departure Time of Disposition: 16:31 Disposition: Home, Self-Care 01 Condition: Fair Clinical Impression: Cervical radiculopathy - Discharge Information Instructions: Cervical Sprain, [id number] Forms: ED Department Discharge Care Plan Goals: The patient was advised of the examination results during the visit. The patient was given an injection of Toradol, Norflex and an oral dose of [place] while in the ED. The patient was discharged with a script for 1) Toradol (10 mg ) #20 to take 1 by mouth every 6 hours, 2) Flexeril (10 mg) #10 to take 1 by mouth at bedtime as needed and 3) [place] (10/325) #5 to take 1 by mouth every 6 hours as needed. The patient should follow-up with his primary care facility for continued evaluation and further management. If the patient has any additional symptoms or concerns, the patient should visit his primary care facility or return to the emergency department. - My Orders Last 24 Hours: My Active Orders 09/21/17 16:15 Orphenadrine [Norflex] 60 mg IM Q12H 09/21/17 16:30 Acetaminophen/HYDROcodone [[place] 325-10 MG] 1 tab PO ONETIME ONE - Assessment/Plan Last 24 Hours: My Active Orders 09/21/17 16:15 Orphenadrine [Norflex] 60 mg IM Q12H 09/21/17 16:30 Acetaminophen/HYDROcodone [[place] 325-10 MG] 1 tab PO ONETIME ONE
[2017-09-21] MEDS ORDERED: Acetaminophen/HYDROcodone 325-10 MG Tab PO ONE (16:30)
== END 2017-09-21 16:39 | disposition home or self-care (01) ==
LOC: DL.ED 15:06
DX: M54.12 Radiculopathy, cervical region (principal); I10 Essential (primary) hypertension; E78.00 Pure hypercholesterolemia, unspecified; J44.9 Chronic obstructive pulmonary disease, unspecified; E11.40 Type 2 diabetes mellitus with diabetic neuropathy, unspecified; F17.210 Nicotine dependence, cigarettes, uncomplicated; Z79.4 Long term (current) use of insulin; Z79.899 Other long term (current) drug therapy; Z88.5 Allergy status to narcotic agent; Z91.013 Allergy to seafood
CPT/HCPCS: 96372; 99283; A9270; J1885; J2360

== ENCOUNTER 2017-09-24 02:09 | Emergency (ER) | payer MEDICAID, OTHER ==
[2017-09-24] MEDS ORDERED: LORazepam 2 MG/ML Syringe IVPUSH ONE ×3 (02:18→02:23)
[2017-09-24] MEDS ORDERED: Sodium Chloride 0.9% 10 ML Syringe FLUSH PRN (02:20)
[2017-09-24] MEDS ORDERED: levETIRAcetam 1,000 MG in Sodium Chloride 0.9% 100 ML IV ONE (02:21)
--- NOTE | 2017-09-24 02:32 | EDM.PDOC ---
ED HPI GENERAL MEDICAL PROBLEM - General Chief Complaint: Neurological Problem Stated Complaint: IN BY AMBULANCE-SEIZURES Time Seen by Provider: 09/24/17 02:09 Source of Information: Reports: Patient History Limitations: Reports: No Limitations - History of Present Illness INITIAL COMMENTS - FREE TEXT/NARRATIVE: he comes emergency department today from home by ambulance with concerns of a seizure. History taking is somewhat limited as the patient is postictal on arrival. According to EMS the patient was seen approximately 1 week ago for similar symptoms and was sent to [facility] for further evaluation and was not started on any medications for his seizure. Per EMS the patient was without complaints today. Just prior to calling the ambulance tonight the patient had 2 seizures at home. One lasting approximately 10 minutes and then another 5 minutes. In route to the hospital the patient became quite rigid and contraction type seizure activity of his upper and lower extremities and was postictal for the EMS following that. Per report he did verbalize that he was in [place] and denied any recent falls or headache. He did not receive any medication prior to arrival to the emergency department. There has been no report of recent falls or head trauma. Back Pain Score (Numeric/FACES): 6 - Related Data Allergies Allergy/AdvReac Type Severity Reaction Status Date / Time codeine Allergy Cannot Verified 09/24/17 02:43 Remember shellfish derived Allergy Cannot Verified 09/24/17 02:43 Remember Home Meds: Home Meds Insulin Aspart [NovoLOG] 40 unit SUBCUT DAILY 11/11/14 [History] Insulin Glarg,Human.Rec.Analog [Lantus Solostar] 0 units SUBCUT DAILY 11/11/14 [ History] Simvastatin [Simvastatin] 40 mg PO BEDTIME 11/11/14 [History] Lisinopril 40 mg PO DAILY 10/21/15 [History] Gabapentin [Neurontin] 600 mg PO TID 09/21/17 [History] Pioglitazone [Actos] 30 mg PO DAILY 09/21/17 [History] Pregabalin [Lyrica] 50 mg PO DAILY 09/21/17 [History] metFORMIN [Glucophage] 100 mg PO BID 09/21/17 [History] Hydrocodone/Acetaminophen [[place] 10-325 Tablet] 1 tab PO Q6HR PRN 09/24/17 [ History] Ibuprofen 800 mg PO Q6HR PRN 09/24/17 [History] Naproxen 500 mg PO BID 09/24/17 [History] Past Medical History Cardiovascular History: Reports: High Cholesterol, Hypertension Respiratory History: Reports: COPD Musculoskeletal History: Reports: Back Pain, Chronic, Fracture, Osteoarthritis Neurological History: Reports: Neuropathy, Diabetic, Seizure Psychiatric History: Reports: Addiction Endocrine/Metabolic History: Reports: Diabetes, Type II, IDDM, Obesity/BMI 30+ - Past Surgical History HEENT Surgical History: Reports: Tonsillectomy Neurological Surgical History: Reports: Spinal Fusion - History Comment History Comment: Noncompliance with medication, insulin, diabetic monitoring/ self care, and diet. Social & Family History - Family History Family Medical History: Noncontributory Cardiac: Reports: CAD, High Cholesterol, Hypertension Respiratory: Reports: COPD GI: Reports: Cholelithiasis Endocrine/Metabolic: Reports: Diabetes, type II, Obesity/MBI 30+ - Tobacco Use Smoking Status *Q: Unknown Ever Smoked Years of Tobacco use: 20 Packs/Tins Daily: 1 Used Tobacco, but Quit: No Second Hand Smoke Exposure: Yes - Caffeine Use Caffeine Use: Reports: Coffee, Soda - Alcohol Use Days Per Week of Alcohol Use: 0 - Recreational Drug Use Recreational Drug Use: No Other Recreational Drug Type: pt denies - Living Situation & Occupation Living situation: Reports: , with Family Occupation: Employed ED ROS GENERAL - Review of Systems Review Of Systems: Unable To Obtain - Physical Exam Exam: See Below Exam Limited By: Other (patient is postictal does not follow commands. He is somewhat agitated and thrashing about the bed at times. No seizure activity on arrival.) General Appearance: Alert (his eyes are open moves all extremities spontaneously. Does not do anything to command. Primarily moaning and groaning. Maintaining airway per self without difficulty.), WD/WN Eye Exam: Bilateral Eye: EOMI, Normal Inspection, PERRL (4) Ears: Normal External Exam, Normal TMs Nose: Normal Inspection, Normal Mucosa Throat/Mouth: Normal Inspection (other than dry oral mucosa), Normal Lips, Normal Teeth, Other (oral mucosa is quite dry.) Head Exam: Atraumatic, Normocephalic. No: Scalp Lacerations, Scalp Swelling, Scalp Abrasions, Scalp Ecchymosis, Scalp Hematoma, Scalp Tenderness, Facial Abrasions, Facial Ecchymosis, Facial Lacerations, Facial Swelling Neck: Normal Inspection, Supple Respiratory/Chest: No Respiratory Distress, Lungs Clear, Normal Breath Sounds Cardiovascular: Normal Peripheral Pulses, Regular Rate, Rhythm GI/Abdominal: Normal Bowel Sounds, Soft (Male) Exam: Deferred Rectal (Males) Exam: Deferred Neuro Exam (Abbreviated): Alert, Disoriented, Other (postictal and agitated. Patient is passing about the bed at times. No seizure activity or nystagmus.). No: Oriented (confused only moans and groans.), CN II-XII Intact (unable to examine as the patient is not cooperative.) Back Exam: Normal Inspection Extremities: Normal Inspection, Normal Range of Motion, Normal Capillary Refill Psychiatric: Other (see above) Skin Exam: Warm, Dry, Intact, Normal Color EKG INTERPRETATION EKG Date: 09/24/17 Time: 02:32 Rhythm: Other (sinus tachycardia) Rate (Beats/Min): 115 [place]: Normal P-Wave: Present QRS: Normal ST-T: Normal QT: Normal Course - Vital Signs Last Recorded V/S: Last Vital Signs Temp 36.3 C 09/24/17 02:22 Pulse 113 H 09/24/17 03:01 Resp 26 H 09/24/17 03:01 BP 128/60 09/24/17 03:01 Pulse Ox 98 09/24/17 03:01 - Orders/Labs/Meds Orders: Active Orders 24 hr Category Date Time Status EKG 12 Lead [EKG Documentation Completion] [RC] URGENT Care 09/24/17 02:20 Active Peripheral IV Care [RC] . DIRECTED Care 09/24/17 02:21 Active Head wo Cont [CT] Stat Exams 09/24/17 02:20 Taken DRUG SCREEN, URINE [URCHEM] Stat Lab 09/24/17 02:20 Uncollected Sodium Chloride 0.9% [Saline Flush] Med 09/24/17 02:20 Active 10 ml FLUSH ASDIRECTED PRN Peripheral IV Insertion Adult [OM.PC] Stat Oth 09/24/17 02:20 Ordered Medication Orders Sodium Chloride (Saline Flush) 10 ml FLUSH ASDIRECTED PRN PRN Reason: Keep Vein Open Last Admin: 09/24/17 02:33 Dose: 10 ml Labs: Laboratory Tests 09/24/17 09/24/17 09/24/17 Range/Units 02:18 02:18 02:18 WBC 14.2 H (5.0-10.0) 10^3/uL RBC 5.21 (4.6-6.2) 10^6/uL Hgb 15.3 (14.0-18.0) g/dL Hct 44.8 (40.0-54.0) % MCV 86.0 (80-100) fL MCH 29.4 (27.0-34.0) pg MCHC 34.2 (33.0-35.0) g/dL Plt Count 213 (150-450) 10^3/uL Neut % (Auto) 53.1 (42.2-75.2) % Lymph % (Auto) 36.7 (20.5-50.1) % [place] % (Auto) 6.8 (2-8) % Eos % (Auto) 3.0 (1.0-3.0) % Baso % (Auto) 0.4 (0.0-1.0) % Sodium 137 (135-145) mmol/L Potassium 3.7 (3.6-5.0) mmol/L Chloride 103 (101-111) mmol/L Carbon Dioxide 19.0 L D (21.0-31.0) mmol/L Anion Gap 18.7 BUN 14 (7-18) mg/dL Creatinine 0.9 (0.6-1.3) mg/dL Est Cr Clr Drug Dosing 108.15 mL/min Estimated GFR (MDRD) > 60 BUN/Creatinine Ratio 15.55 Glucose 273 H (74-105) mg/dL POC Glucose (70-105) mg/dl Lactic Acid 7.6 H (0.5-2.2) mmol/L Calcium 9.0 (8.4-10.2) mg/dl Total Bilirubin 0.5 (0.2-1.0) mg/dL AST 30 (10-42) IU/L ALT 38 (10-60) IU/L Alkaline Phosphatase 137 H (42-121) IU/L Troponin I < 0.02 (0.00-0.02) ng/ml Total Protein 7.8 (6.7-8.2) g/dl Albumin 4.5 (3.2-5.5) g/dl Globulin 3.3 Albumin/Globulin Ratio 1.36 Ethyl Alcohol mg/dL 09/24/17 09/24/17 Range/Units 02:18 02:31 WBC (5.0-10.0) 10^3/uL RBC (4.6-6.2) 10^6/uL Hgb (14.0-18.0) g/dL Hct (40.0-54.0) % MCV (80-100) fL MCH (27.0-34.0) pg MCHC (33.0-35.0) g/dL Plt Count (150-450) 10^3/uL Neut % (Auto) (42.2-75.2) % Lymph % (Auto) (20.5-50.1) % [place] % (Auto) (2-8) % Eos % (Auto) (1.0-3.0) % Baso % (Auto) (0.0-1.0) % Sodium (135-145) mmol/L Potassium (3.6-5.0) mmol/L Chloride (101-111) mmol/L Carbon Dioxide (21.0-31.0) mmol/L Anion Gap BUN (7-18) mg/dL Creatinine (0.6-1.3) mg/dL Est Cr Clr Drug Dosing mL/min Estimated GFR (MDRD) BUN/Creatinine Ratio Glucose (74-105) mg/dL POC Glucose 284 H (70-105) mg/dl Lactic Acid (0.5-2.2) mmol/L Calcium (8.4-10.2) mg/dl Total Bilirubin (0.2-1.0) mg/dL AST (10-42) IU/L ALT (10-60) IU/L Alkaline Phosphatase (42-121) IU/L Troponin I (0.00-0.02) ng/ml Total Protein (6.7-8.2) g/dl Albumin (3.2-5.5) g/dl Globulin Albumin/Globulin Ratio Ethyl Alcohol < 5 mg/dL Meds: Medications Generic Name Dose Route Start Last Admin Trade Name Freq PRN Reason Stop Dose Admin Sodium Chloride 10 ml 09/24/17 02:20 09/24/17 02:33 Saline Flush FLUSH 10 ml ASDIRECTED PRN Administration Keep Vein Open Discontinued Medications Generic Name Dose Route Start Last Admin Trade Name Freq PRN Reason Stop Dose Admin Levetiracetam 1,000 mg/ Sodium 110 mls @ 400 mls/hr 09/24/17 02:21 09/24/17 02:32 Chloride IV 09/24/17 02:35 400 mls/hr ONETIME ONE Administration Lorazepam 2 mg 09/24/17 02:18 09/24/17 02:18 Ativan IVPUSH 09/24/17 02:19 2 mg ONETIME ONE Administration Lorazepam 2 mg 09/24/17 02:21 09/24/17 02:33 Ativan IVPUSH 09/24/17 02:22 Not Given ONETIME ONE Lorazepam 2 mg 09/24/17 02:23 09/24/17 02:28 Ativan IVPUSH 09/24/17 02:24 2 mg ONETIME ONE Administration - Re-Assessments/Exams Free Text/Narrative Re-Assessment/Exam: 09/24/17 02:44 patient was given a total of 4 mg Ativan IV due to continued agitation and combativeness and confusion. He was also loaded with a gram of Keppra IV piggyback. 09/24/17 03:20 at this time the patient is alert and oriented 3. He is cooperative. He is moving all extremities strong and equal to command. He reports that today he was without complaints. He felt somewhat funny and thought his blood sugar was low at home so he checked his blood sugar which was in the 200s and the next thing he remembers he woke up in the hospital. He denies a headache confusion fever or chills. Denies any recent falls or trauma to his head. He does complain of generalized malaise. Denies alcohol usage. He was seen approximately 1 month ago and transferred to [facility] at that time for further care and evaluation of seizures. He was not started on any seizure medication and discharged home. Departure - Departure Time of Disposition: 03:39 Disposition: DC/Tfer to Acute Hospital 02 Clinical Impression: Seizure - Discharge Information Forms: ED Department Discharge, Interfacility Transfer [facility] ED Communication - Discussed Case With (1) Discussed Case With (1): Admitting Provider (Spoke with Dr. Hinson at [facility] in [place] at [phone]. HPI ER COURSE findings and concerns were relayed to him verbally over the phone. His questions were answered. No new orders and accepted the patient in transfer to [facility] at this time.) - My Orders Last 24 Hours: My Active Orders 09/24/17 02:20 EKG 12 Lead [EKG Documentation Completion] [RC] URGENT Head wo Cont [CT] Stat DRUG SCREEN, URINE [URCHEM] Stat Sodium Chloride 0.9% [Saline Flush] 10 ml FLUSH ASDIRECTED PRN Peripheral IV Insertion Adult [OM.PC] Stat 09/24/17 02:21 Peripheral IV Care [RC] . DIRECTED - Assessment/Plan Last 24 Hours: My Active Orders 09/24/17 02:20 EKG 12 Lead [EKG Documentation Completion] [RC] URGENT Head wo Cont [CT] Stat DRUG SCREEN, URINE [URCHEM] Stat Sodium Chloride 0.9% [Saline Flush] 10 ml FLUSH ASDIRECTED PRN Peripheral IV Insertion Adult [OM.PC] Stat 09/24/17 02:21 Peripheral IV Care [RC] . DIRECTED Assessment:: Multiple seizures with post ictal status. Neuro okay on transfer. Alert awake without complaints. Plan: Transfer to [facility] for further care and evaluation.
[2017-09-24 02:45] LABS: CHLORIDE,CL 103 mmol/L (101-111); SODIUM,NA 137 mmol/L (135-145)
[2017-09-24 03:02] VITALS: BP 128/60
--- NOTE | 2017-09-29 14:52 | EKG ---
09/24/2017- PAGE, REX AVERY - FINDINGS: EKG, per my reading, shows sinus tachycardia at the rate of 115. MOD /[id number]
== END 2017-09-24 04:07 ==
LOC: DL.ED 02:09
DX: G40.909 Epilepsy, unspecified, not intractable, without status epilepticus (principal); I10 Essential (primary) hypertension; E78.00 Pure hypercholesterolemia, unspecified; J44.9 Chronic obstructive pulmonary disease, unspecified; E11.40 Type 2 diabetes mellitus with diabetic neuropathy, unspecified; Z77.22 Contact with and (suspected) exposure to environmental tobacco smoke (acute) (chronic); Z79.4 Long term (current) use of insulin; Z79.899 Other long term (current) drug therapy; Z88.5 Allergy status to narcotic agent; Z91.013 Allergy to seafood
CPT/HCPCS: 36415; 70450; 80053; 82962; 83605; 84484; 85025; 93005; 96365; 96375; 99285; G0480; J1953; J2060; J7050